=== PATIENT | female | born 1980 | race Caucasian/White ===

== ENCOUNTER 2017-11-10 13:02 | Emergency (ER) | payer OTHER ==
[~2017-11-10] VITALS: Ht 162.6 cm; Wt 97.5 kg
[~2017-11-10 13:02] MED LIST: AMBEREN; AZITHROMYCIN 2250 MG PO; CALTRATE-600 W1 EACH; CENTANY30 GM TP; CENTRUM SILVER1 EAC4 PO; CHANTIX1 MG PO; FLOXIN OTI0.3 %/5 M1 OT; IBUPROFEN 200200 M1 PO; IBUPROFEN 800800 MG PO; IRON325 PO; KEFLEX500 MG PO; MEDROL DOSPAK21 TA1 PO; MEDROLDOSEPACK PO; MOBIC15 MG PO; NOHOMEMEDICATIONS; NORCO 5-325 TA1 EACH PO; OMEPRAZOLE; PERCOCET 5-3251 EACH PO; PHENERGAN-CODE120 ML PO; PRILOSEC 10MG C10 MG PO; SARNA ANTI-ITC222 ML TP; TORADOL 10 MG T10 MG PO; ULTRAM 50MG TAB50 MG PO; VENTOLIN HFA 1818 GM INH; VITAMIN D 5050000 I1 PO; VITAMIN D250000 UNIT; ZANTAC 150MG T150 M1; ZANTAC 150MG T150 MG PO; ZOFRAN ODT4 MG PO; ZPAK; ZPAK PO
[2017-11-10 13:20] LABS: URINE BILIRUBIN NEGATIVE (Negative); URINE BLOOD NEGATIVE (Negative); URINE CLARITY CLEAR; URINE COLOR YELLOW; URINE GLUCOSE-RANDOM NEGATIVE (Negative); URINE KETONES NEGATIVE (Negative); URINE LEUKOCYTES-REFLEX NEGATIVE (Negative); URINE NITRITE-REFLEX NEGATIVE (Negative); URINE PROTEIN NEGATIVE (Negative); URINE UROBILINOGEN 0.2 E.U./dl (0.2-1.0)
[2017-11-10 13:30] LABS: ABSOLUTE BASOPHILS 0.1 thou/uL (0.0-0.2); ABSOLUTE EOSINOPHILS 0.2 thou/uL (0.0-0.7); ABSOLUTE LYMPHOCYTES 1.6 thou/uL (0.8-5.3); ABSOLUTE MONOCYTES 0.7 thou/uL (0.0-1.2); ABSOLUTE NEUTROPHILS 5.4 thou/uL (1.6-8.1); BASOPHILS 0.8 %; EOSINOPHILS 2.5 %; HEMATOCRIT 39.7 % (37.0-47.0); HEMOGLOBIN 13.3 gm/dL (12.0-15.0); LYMPHOCYTES 20.2 %; MCH 28.9 pg (26.0-34.0); MCHC 33.4 g/dL (28.0-37.0); MCV 86.6 fL (80.0-100.0); MONOCYTES 8.9 %; MPV 8.4 fl. (7.2-11.1); NUCLEATED RBCS 0 /100WBC; PLATELET COUNT* 295 thou/uL (150-400); POLYS 67.6 %; RBC 4.59 mil/uL (4.20-5.00); RDW-CV 13.6 % (10.5-14.5)
[2017-11-10 13:38] LABS: CALCIUM 8.4 mg/dL (8.5-10.1); CREATININE 0.6 mg/dL (0.6-1.3); POTASSIUM 3.7 mmol/L (3.5-5.1)
[2017-11-10 13:48] LABS: ALBUMIN 3.7 g/dL (3.4-5.0); TOTAL BILIRUBIN 0.3 mg/dL (<0.1-1.0); TOTAL PROTEIN 7.3 g/dL (6.4-8.2)
[2017-11-10] MEDS ORDERED: ZOFRAN4 MG PO (15:08)
[2017-11-10 15:19] VITALS: BP 136/74
== END 2017-11-10 15:20 | disposition home or self-care (01) ==
LOC: M.ERS 13:02
PROVIDERS: Nurse Practitioner Family
DX: R10.31 Right lower quadrant pain (principal); R11.2 Nausea with vomiting, unspecified; R19.7 Diarrhea, unspecified; K21.9 Gastro-esophageal reflux disease without esophagitis; Z90.49 Acquired absence of other specified parts of digestive tract; F17.210 Nicotine dependence, cigarettes, uncomplicated; Z88.0 Allergy status to penicillin; Z88.2 Allergy status to sulfonamides